=== PATIENT | female | born 1985 | race African-American/Black ===

== ENCOUNTER → 2017-12-24 | Outpatient (CLI) | END | disposition home or self-care (01) ==

== ENCOUNTER 2019-01-27 13:07 | Emergency (ER) | payer BC ==
[~2019-01-27] VITALS: Wt 76.1 kg
[2019-01-27] MEDS ORDERED: SODIUM CHLORIDE 0.9% 1L BAG IV* STA (13:27)
[2019-01-27] MEDS ORDERED: ACETAMINOPHEN 325 MG TAB PO ONE (13:30)
[2019-01-27] MEDS ORDERED: ACET325T33 PO (15:16)
[2019-01-27] MEDS ORDERED: NITR-58 PO (15:16)
[2019-01-27 15:20] VITALS: BP 111/72; PULSE 92; RESP 18
[2019-01-27] MEDS ORDERED: NITROFURANTOIN (SR) 100 MG CAP PO ONE (15:30)
--- NOTE | 2019-01-27 17:41 | ERD ---
ER Documentation Chief Complaint Chief Complaint VOMITING AND EPIGASTRIC PAIN INTERMITTENT FOR 2 WKS. NO DIARRHEA HPI Patient is a 33-year-old female who presents with abdominal pain and fever. The patient has had 2 weeks of epigastric pain and vomiting. She tried Zofran at home. She said the pain is been constant and sharp. She has had fevers as well. She called Dr. Benavidez her primary doctor who sent her to the emergency depa rtment. Upon review of old medical records this is the patient's first visit to the emergency department. ROS All systems reviewed and are negative except as per history of present illness. Medications Home Meds Active Scripts Nitrofurantoin Monohyd Macrocr* (Macrobid*) 100 Mg Capsr, 100 MG PO BID for 7 Days, CAP Prov:HOLLIE SHAW MD 01/27/19 Acetaminophen* (Tylenol*) 325 Mg Tablet, 2 TAB PO Q8 PRN for PAIN AND OR ORA VATED TEMP, #20 TAB Prov:HOLLIE SHAW MD 01/27/19 Allergies Allergies: Coded Allergies: No Known Allergy (Unverified , 01/27/19) PMhx/Soc Medical and Surgical Hx: pt denies Medical Hx, pt denies Surgical Hx Hx Psychiatric Problems: No Hx Miscellaneous Medical Probl: No Hx Alcohol Use: No Hx Substance Use: No Hx Tobacco Use: No Smoking Status: Never smoker FmHx Family History: diabetes Physical Exam Vitals Vital Signs Date Temp Pulse Resp B/P (MAP) Pulse Ox O2 O2 Flow FiO2 Time Delivery Rate 01/27/19 99.9 92 18 111/72 98 Room Air 15:20 (85) 01/27/19 100.4 133 20 101/79 99 13:13 (86) Physical Exam Const: No acute distress Head: Atraumatic Eyes: Normal Conjunctiva ENT: Normal External Ears, Nose and Mouth. Neck: Full range of motion. No meningismus. Resp: Clear to auscultation bilaterally Cardio: Tachycardic rate without murmur Abd: Soft, epigastric tenderness to palpation without rebound or guarding Skin: No petechiae or rashes Back: No midline or flank tenderness Ext: No cyanosis, or edema Neur: Awake and alert Psych: Normal Mood and Affect Result Diagram: 01/27/19 1346 01/27/19 1346 Results 24 hrs Laboratory Tests Test 01/27/19 13:45 01/27/19 13:46 01/27/19 13:51 Serum HCG, Qualitative NEGATIVE White Blood Count 7.5 10^3/ul Red Blood Count 4.98 10^6/ul Hemoglobin 12.7 g/dl Hematocrit 39.2 % Mean Corpuscular Volume 78.7 fl Mean Corpuscular Hemoglobin 25.5 pg Mean Corpuscular 32.4 g/dl Hemoglobin Concent Red Cell Distribution Width 13.4 % Platelet Count 315 10^3/UL Mean Platelet Volume 11.9 fl Immature Granulocytes % 0.500 % Neutrophils % 83.8 % Lymphocytes % 8.3 % Monocytes % 7.2 % Eosinophils % 0.1 % Basophils % 0.1 % Nucleated Red Blood Cells % 0.0 /100WBC Immature Granulocytes # 0.040 10^3/ul Neutrophils # 6.3 10^3/ul Lymphocytes # 0.6 10^3/ul Monocytes # 0.5 10^3/ul Eosinophils # 0.0 10^3/ul Basophils # 0.0 10^3/ul Nucleated Red Blood Cells # 0.0 10^3/ul Prothrombin Time 13.0 Sec Prothrombin Time Ratio 1.0 INR International 0.97 Normalized Ratio Activated Partial Thromboplast 30.2 Sec Time Urine Color YELLOW Urine Clarity SLIGHTLY CLOUDY Urine pH 5.0 Urine Specific Jeannette 1.018 Urine Ketones 1+ mg/dL Urine Nitrite NEGATIVE mg/dL Urine Bilirubin NEGATIVE mg/dL Urine Urobilinogen NEGATIVE mg/dL Urine Leukocyte Esterase TRACE Emile/ul Urine Microscopic RBC 1 /HPF Urine Microscopic WBC 10 /HPF Urine Squamous Epithelial Cells FEW /HPF Urine Bacteria FEW /HPF Urine Mucus FEW /HPF Urine Hemoglobin NEGATIVE mg/dL Urine Glucose NEGATIVE mg/dL Urine Total Protein NEGATIVE mg/dl Sodium Level 139 mmol/L Potassium Level 3.8 mmol/L Chloride Level 100 mmol/L Carbon Dioxide Level 25 mmol/L Anion Gap 14 Blood Urea Nitrogen 12 mg/dl Creatinine 0.84 mg/dl Est Glomerular Filtrat > 60 mL/min Rate mL/min Glucose Level 110 mg/dl Calcium Level 9.7 mg/dl Total Bilirubin 0.8 mg/dl Direct Bilirubin 0.00 mg/dl Indirect Bilirubin 0.8 mg/dl Aspartate Amino Transf (AST/SGOT) 34 IU/L Alanine 34 IU/L Aminotransferase (ALT/SGPT) Alkaline Phosphatase 91 IU/L Troponin I < 0.012 ng/ml Total Protein 8.6 g/dl Albumin 4.7 g/dl Globulin 3.90 g/dl Albumin/Globulin Ratio 1.20 Lipase 122 U/L POC Venous Lactate 1.0 mmol/L Current Medications Medications Dose Sig/Danilo Start Time Status Last (Trade) Ordered Route PRN Stop Time Admin Dose Reason Admin Sodium 2,280 ml BOLUS OVER 2 01/27/19 DC 01/27/19 Chloride HOURS STAT 13:27 13:55 (NS) IV* 01/27/19 13:29 650 mg ONCE ONCE 01/27/19 DC 01/27/19 Acetaminophen PO 13:30 13:54 (Tylenol 01/27/19 13:31 Tab) 100 mg ONCE ONCE 01/27/19 DC 01/27/19 Nitrofurantoi PO 15:30 15:27 n 01/27/19 15:31 Macrocrystals (Macrobid) Procedures/MDM Ultrasound of the gallbladder read by radiology. Patient is a 33-year-old female who presents with vomiting and epigastric pain. Laboratory studies were basically normal. Urinalysis shows acute infection. Lactic acid was normal and I doubt sepsis or other serious bacterial infection at this time. The patient will be given Macrobid for 1 week course. The patient was given Tylenol and fluids in the emergency department and feels better. I believe she stable for outpatient management but will need to follow- up with her primary doctor within 24-48 hours. She can return sooner for any worsening symptoms. I doubt appendicitis, cholecystitis, pancreatitis, or bowel obstruction. I doubt or ectopic . Departure Diagnosis: Primary Impression: Cystitis Additional Impressions: Vomiting Vomiting type: unspecified Vomiting Intractability: non-intractable Nausea presence: with nausea Qualified Codes: R11.2 - Nausea with vomiting, unspecified Abdominal pain Abdominal location: epigastric Qualified Codes: R10.13 - Epigastric pain Condition: Fair Patient Instructions: Cystitis, Vomiting (6Y-Adult) Additional Instructions: Call your primary care doctor TOMORROW for an appointment during the next 1-2 days.See the doctor sooner or return here if your condition worsens before your appointment time. HOLLIE SHAW MD Jan 27, 2019 17:41
== END 2019-01-27 15:56 | disposition home or self-care (01) ==
LOC: EEVIPCON 13:07 → E/R 13:07
DX: N30.90 Cystitis, unspecified without hematuria (principal)
CPT/HCPCS: 36415; 76705; 80053; 81001; 83605; 83690; 84484; 84703; 85025; 85610; 85730; 87040; 87086; 99285; J7030